=== PATIENT | male | born 1995 | race Caucasian/White ===

== ENCOUNTER 2020-01-08 12:50 | Emergency (ER) | payer MEDICAID, SELFPAY ==
[2020-01-08 13:04] VITALS: BP 103/58; PULSE 75; RESP 18; TEMP 36.9; O2SAT 100
--- NOTE | 2020-01-08 13:35 | ED.GENADULT ---
HPI - General Adult General Chief complaint: Unspecified Stated complaint: sore throat Time Seen by Provider: 01/08/20 13:28 Source: patient Mode of arrival: ambulatory Limitations: no limitations History of Present Illness HPI narrative: Patient is a 24-year-old male who presents for 5 days of worsening sore throat pain. Patient reports his tonsils appear red and swollen. He states he is having pain with swallowing, but denies difficulty swallowing. No current shortness of breath. He states if he lays flat he feels as if it is more hard to breathe. No current cough, patient has had a low-grade fever, he states he is unsure of the temperature. Patient had recent COVID testing this week which was negative. Patient has history of strep throat usually once yearly. Related Data Allergies Allergy/AdvReac Type Severity Reaction Status Date / Time No Known Allergies Allergy Verified 01/08/20 13:27 Review of Systems Review of Systems: Narrative: CONSTITUTIONAL: Denies fever CARDIOVASCULAR: Denies chest pain HEENT: Reports sore throat RESPIRATORY: Denies cough or dyspnea. GASTROINTESTINAL: Denies abdominal pain SKIN: Denies rash MUSCULOSKELETAL: Denies back pain NEUROLOGIC: Denies headache [facility] Past Medical History Medical History (Updated 01/08/20 @ 13:48 by Zohreh Ryan MD) No pertinent past medical history Surgical History Surgical History (Updated 01/08/20 @ 13:48 by Zohreh Ryan MD) No pertinent past surgical history Social History Social History (Updated 01/08/20 @ 13:48 by Zohreh Ryan MD) Smoking status: Never smoker Alcohol intake: current Alcohol use details: Social, occasional Substance use: current Substance use type: marijuana Gender identity (if verbalized by the patient): Male Exam Narrative: Exam Narrative: GENERAL: Awake, alert, conversant HEAD: Normocephalic, atraumatic. EYES: PERRLA and EOMI. ENT: Nares clear, no rhinorrhea or epistaxis. Mucous membranes moist. Tonsils are edematous, erythematous, both palatine tonsils have white exudate present on them. There is some petechia of the hard palate. NECK: Supple. Bilateral anterior cervical lymphadenopathy. Lymph nodes are nonrigid, mobile, mildly tender. CHEST: No respiratory distress, breathing even and non labored HEART: Regular rate, sinus rhythm ABDOMEN:Non distended, non tender EXTREMITIES: Normal range of motion. No edema. SKIN: Warm, dry, no rash. NEURO:No focal deficits. Alert and oriented x3 Course Vital Signs Vital signs: Vital Signs Temperature 36.9 C 01/08/20 13:04 Pulse Rate 75 01/08/20 13:04 Respiratory Rate 18 01/08/20 13:04 Blood Pressure 103/58 L 01/08/20 13:04 Pulse Oximetry 100 01/08/20 13:04 Temperature 36.9 C 01/08/20 13:04 Pulse Rate 75 01/08/20 13:04 Respiratory Rate 18 01/08/20 13:04 Blood Pressure 103/58 L 01/08/20 13:04 Pulse Oximetry 100 01/08/20 13:04 Medical Decision Making MDM Narrative Medical decision making narrative: Patient presented for evaluation of sore throat. Clinically, patient's exam seems quite consistent with strep pharyngitis given bilateral anterior cervical lymphadenopathy, white exudate present on bilateral tonsils, erythema and edema of the tonsils. Uvula is midline. No neck pain. Patient is nontoxic-appearing without any respiratory symptoms currently. He has had recent negative COVID testing, furthermore patient is not having any current respiratory symptoms, does not appear unstable, I do not feel we need to repeat COVID testing here, given no productive cough or shortness of breath I do not think we need to perform a chest x-ray. I will treat patient for what seems to be a clinical diagnosis of strep pharyngitis. Strep culture ordered. Patient was then discharged home. Differential Diagnosis Differential Diagnosis: Pharyngitis, upper respiratory infection, viral illness, strep pharyngitis, RPA, [employer] Vital Sign
[2020-01-08 14:11] VITALS: BP 110/60; PULSE 64; RESP 20; O2SAT 100
== END 2020-01-08 14:12 | disposition home or self-care (01) ==
LOC: ANHED 13:51
PROVIDERS: Emergency Provider Emergency Medicine
DX: J02.0 Streptococcal pharyngitis (principal)
CPT/HCPCS: 87081; 87147; 87880; 99283

== ENCOUNTER 2020-10-25 15:07 | Emergency (ER) | payer OTHER, SELFPAY ==
[2020-10-25 15:14] VITALS: BP 103/58; PULSE 82; RESP 17; TEMP 37.6; O2SAT 100
--- NOTE | 2020-10-25 16:27 | ED.DENTAL ---
HPI - Dental/Oral General Chief complaint: Dental/Oral Stated complaint: Dental Pain Time Seen by Provider: 10/25/20 15:25 Source: patient and RN notes reviewed Mode of arrival: ambulatory Limitations: no limitations History of Present Illness HPI Narrative: Patient is a 25-year-old male who presents with recurrent right lower dental pain with history of decay has been taking amoxicillin off and on after seeing a dentist but has not taken it as prescribed patient notes aching pain that shoots down into the jaw patient denies any fever chills nausea vomiting presents in no distress Related Data Allergies Allergy/AdvReac Type Severity Reaction Status Date / Time No Known Allergies Allergy Verified 01/08/20 13:27 Review of Systems Review of Systems: All systems reviewed & are unremarkable except as noted in HPI and below PMFSH Past Medical History Medical History No pertinent past medical history Surgical History Surgical History No pertinent past surgical history Social History Social History Smoking status: Never smoker Alcohol intake: current Substance use: current Substance use type: marijuana Gender identity (if verbalized by the patient): Male Exam Narrative: Exam Narrative: GENERAL: Well-appearing, well-nourished, and in no acute distress. HEAD: Normocephalic, atraumatic. EYES: PERRLA and EOMI. ENT: Nares clear, no rhinorrhea or epistaxis. Mucous membranes moist. Oropharynx without tonsillar hypertrophy exudate or other lesions. Patient with gross dental decay with right lower dental caries no space-occupying lesions floor the mouth is soft uvula is midline no trismus or drooling NECK: Supple. No adenopathy or masses. No carotid bruits or JVD EXTREMITIES: Normal range of motion. No edema. SKIN: Warm, dry, no rash. NEURO: No focal deficits. Alert and oriented x3. PSYCH: Normal mood and affect. Course Course Emergency Course: Patient in the room no distress aware of case findings treatment plan and diagnosis felt appropriate for outpatient reevaluation agreeing to follow-up as instructed Vital Signs Vital signs: Vital Signs Temperature 99.6 F 10/25/20 15:14 Pulse Rate 82 10/25/20 15:14 Respiratory Rate 17 10/25/20 15:14 Blood Pressure 103/58 L 10/25/20 15:14 Pulse Oximetry 100 10/25/20 15:14 Temperature 99.6 F 10/25/20 15:14 Pulse Rate 82 10/25/20 15:14 Respiratory Rate 17 10/25/20 15:14 Blood Pressure 103/58 L 10/25/20 15:14 Pulse Oximetry 100 10/25/20 15:14 MDM - Dental/Oral MDM Narrative Medical decision making narrative: Patients pain and complaint coupled with physical findings are consistent with dentalgia. There are no focal signs of space occupying lesions that are compromising to the airway. The floor of the mouth is soft with no signs of Davidson Angina. Patient is without trismus or drooling and able to swallow secretions. Patient is felt appropriate for discharge home with dental follow up. Discharge Plan Discharge Clinical Impression: Dental abscess Patient Disposition: Home, Self-Care Condition: Stable Instructions: Antibiotic Form, Dental Abscess (ED) Additional Instructions: Follow-up with dentistry in the next 7 days to set up for reevaluation return if symptoms worsen or concerns. Only take medications as directed. Follow patient education sheets. Prescriptions: New chlorhexidine gluconate [Peridex] 0.12 % mouthwash 15 ml buccal BID Qty: 1500 RF: 0 ibuprofen [Motrin IB] 200 mg tablet 600 mg PO Q6H PRN (Reason: fever or pain) Qty: 7 RF: 0 clindamycin HCl 150 mg capsule 450 mg PO Q8H 10 Days Qty: 90 RF: 0 No Action amoxicillin 875 mg tablet 875 mg PO Q12H 10 Days Qty: 20 RF: 0 dexamethasone [Decadron] 6 mg tablet 12 mg P
== END 2020-10-25 17:09 | disposition home or self-care (01) ==
PROVIDERS: Emergency Provider Emergency Medicine
DX: K04.7 Periapical abscess without sinus (principal)
CPT/HCPCS: 99283

== ENCOUNTER 2020-10-29 13:31 | Emergency (ER) | payer OTHER, SELFPAY ==
[2020-10-29 13:36] VITALS: BP 118/84; PULSE 69; RESP 18; TEMP 37.1; O2SAT 100
--- NOTE | 2020-10-29 13:37 | ED.DENTAL ---
HPI - Dental/Oral General Chief complaint: Dental/Oral Stated complaint: Toothache Time Seen by Provider: 10/29/20 13:48 Source: patient and RN notes reviewed Mode of arrival: ambulatory Limitations: no limitations History of Present Illness HPI Narrative: 25-year-old male presents with concern for right lower dental pain he reports he has a broken tooth, was seen by a dentist approximately 2 weeks ago and was given a prescription for amoxicillin and told that he needed to have the tooth removed. Reports he was unable to afford the cost to have the tooth removed. Reports he was taking amoxicillin, however not taking as prescribed. Reports 4 days ago he went to the emergency room and was given a prescription for clindamycin. Reports has been taking the clindamycin, however it has not resolved pain, reports the pain is not allowing him to sleep or eat. Reports he has been taking ibuprofen every 6 hours. He denies difficulty swallowing, fever, body aches. MD Complaint: tooth pain Related Data Allergies Allergy/AdvReac Type Severity Reaction Status Date / Time No Known Allergies Allergy Verified 10/29/20 13:33 Review of Systems Review of Systems: Narrative: CONSTITUTIONAL: Denies malaise, chills, sweats, or fever. EYES: Denies visual changes, redness, or discharge. ENT: Denies difficulty swallowing, swollen tongue, swollen lips. Reports left lower dental pain CARDIOVASCULAR: Denies chest pain, palpitations, or edema. RESPIRATORY: Denies cough or dyspnea. GASTROINTESTINAL: Denies abdominal pain, nausea, vomiting. Reports decreased oral intake SKIN: Denies rash or itching. MUSCULOSKELETAL: Denies myalgia. NEUROLOGIC: Denies headache. All systems reviewed & are unremarkable except as noted in HPI and below PMFSH Past Medical History Medical History No pertinent past medical history Surgical History Surgical History No pertinent past surgical history Social History Social History Smoking status: Never smoker Alcohol intake: current Substance use: current Substance use type: marijuana Gender identity (if verbalized by the patient): Male Comments At time of signature, agree with nursing past medical, surgical, social and family history. There is no relevant family history pertinent to the presenting complaint Exam Narrative: Exam Narrative: GENERAL: Well-appearing, well-nourished, and in no acute distress. HEAD: Normocephalic, atraumatic. EYES: PERRLA, conjunctivae clear. ENT: Nares clear, no rhinorrhea or epistaxis. Mucous membranes moist. Oropharynx without tonsillar hypertrophy exudate or other lesions. Patient with gross dental decay with right lower dental caries no space-occupying lesions floor the mouth is soft uvula is midline no trismus or drooling NECK: Supple. No lymphadenopathy. CHEST: No respiratory distress. Speaks in full sentences. HEART: Regular rate and rhythm. SKIN: Warm, dry, no rash. NEURO: Alert and oriented x3. No focal deficits. PSYCH: Normal mood and affect Course Course Emergency Course: Discussed pain management plan with patient, discussed short-term amount of pain medicine will be given until the patient can follow-up with his dentist in the morning. Reports he has an appointment in the morning. Discussed alternatives to pain medicine for pain relief. Patient is aware of diagnosis, understands and agrees to treatment plan. Anticipatory guidance given. Patient agrees to follow-up as directed and is aware of reasons to seek care at the emergency department. Portions of this record may have been created with voice recognition software Vital Signs Vital signs: Reviewed. MDM - Dental/Oral MDM Narrative Medical decision making narrative: Patients pain and complaint coupled with physical findings are consistant with dent
[2020-10-29] MEDS: KETOROLAC (*BKC) 60 MG/2 ML VIAL IM (14:01)
--- NOTE | 2020-10-29 14:06 | PC.NURSE ---
went to give injection in left buttock and bandaid present. pt did get a injection yesterday in the left buttock. toradol injection given in right buttock today. TOR PHILIPPE RN.
== END 2020-10-29 14:16 | disposition home or self-care (01) ==
PROVIDERS: Emergency Provider Nurse Practitioner
DX: K08.89 Other specified disorders of teeth and supporting structures (principal)
CPT/HCPCS: 96372; 99213; G0463; J1885